=== PATIENT | female | born 1980 | race American Indian/Alaskan Native ===

== ENCOUNTER 2016-08-17 17:18 | Emergency (ER) | payer MEDICAID ==
[2016-08-17] MEDS ORDERED: TORADOL IM ONE (19:25)
--- NOTE | 2016-08-17 19:38 | Emergency Department Report ---
ED Fall HPI - General Chief Complaint: Fall Stated Complaint: FALL Time Seen by Provider: 08/17/16 19:11 Source: patient Mode of arrival: Ambulatory - History of Present Illness Initial Comments: 36-year-old female past medical history asthma, smoker presents with complaint of left-sided rib pain status post mechanical fall yesterday. Patient states she was shopping at [employer] when she slipped on a puddle of water in aisle. Patient states she landed on her left side. Denies any loss of consciousness states her head did not hit the ground. Denies sustaining any lacerations. Patient was assisted by bystanders. Patient is awake alert and oriented 3 not in acute distress complaining of soreness in her elbow and right knee some soreness in her upper left shoulder region primarily complaining of pain along her left mid axillary line/rib region. States pain is slightly worse when she takes deep breath. Patient is fully ambulatory without any assistance. States she took Motrin at home with minimal relief of pain. Denies any abdominal pain no shortness of breath no nausea or vomiting reported. Patient states she is on Depo-Provera for control MD Complaint: fall Onset/Timin -: days(s) Fall From: standing Fall Witnessed: yes, by bystander Place Fall Occurred: other (store) Loss of Consciousness: none Prolonged Down Time?: no Symptoms Prior to Fall: none Location: chest Severity: moderate Severity scale (0 -10): 6 Quality: sharp, aching Context: tripped/slipped - Related Data Previous Rx's Medication Instructions Recorded Last Taken Type ALBUTEROL Inhaler [ProAir HFA 1 puff IH Q4H PRN #1 inha 08/17/16 Unknown Rx Inhaler] Acetaminophen/Codeine [Tylenol 1 tab PO Q6H PRN #8 tab 08/17/16 Unknown Rx /Codeine # 3 tab] Naproxen [Naprosyn TAB] 500 mg PO BID PRN #25 tablet 08/17/16 Unknown Rx Allergies Allergy/AdvReac Type Severity Reaction Status Date / Time No Known Allergies Allergy Unverified 08/17/16 18:01 ED Review of Systems ROS: Stated complaint: FALL Other details as noted in HPI Constitutional: denies: chills, fever Eyes: denies: eye pain, eye discharge, vision change ENT: denies: ear pain, throat pain Respiratory: denies: cough, shortness of breath, wheezing Cardiovascular: denies: chest pain, palpitations Endocrine: no symptoms reported Gastrointestinal: denies: abdominal pain, nausea, diarrhea Genitourinary: denies: urgency, dysuria, discharge Musculoskeletal: denies: back pain, joint swelling, arthralgia Skin: denies: rash, lesions Neurological: denies: headache, weakness, paresthesias Psychiatric: denies: anxiety, depression Hematological/Lymphatic: denies: easy bleeding, easy bruising ED Past Medical Hx - Past Medical History Previous Medical History?: No - Surgical History Additional Surgical History: Endometriosis - Social History Smoking Status: Current Every Day Smoker Substance Use Type: None - Medications Home Medications: Home Medications Medication Instructions Recorded Confirmed Last Taken Type ALBUTEROL Inhaler [ProAir HFA 1 puff IH Q4H PRN #1 inha 08/17/16 Unknown Rx Inhaler] Acetaminophen/Codeine [Tylenol 1 tab PO Q6H PRN #8 tab 08/17/16 Unknown Rx /Codeine # 3 tab] Naproxen [Naprosyn TAB] 500 mg PO BID PRN #25 tablet 08/17/16 Unknown Rx ED Physical Exam - General Limitations: No Limitations General appearance: alert, in no apparent distress - Head Head exam: Present: atraumatic, normocephalic - Eye Eye exam: Present: normal appearance, PERRL, EOMI - ENT ENT exam: Present: mucous membranes moist - Neck Neck exam: Present: normal inspection - Respiratory Respiratory exam: Present: normal lung sounds bilaterally, chest wall tenderness (mild reproducible pain left midaxillary line along costal margin). Absent: respiratory distress - Cardiovascular Cardiovascular Exam: Present: regular rate, normal rhythm. Absent: systolic murmur, diastolic murmur, rubs, gallop - GI/Abdominal GI/Abdominal exam: Present: soft, normal bowel sounds - Extremities Exam Extremities exam: Present: normal inspection - Back Exam Back exam: Present: normal inspection - Neurological Exam Neurological exam: Present: alert, oriented X3 - Psychiatric Psychiatric exam: Present: normal affect, normal mood - Skin Skin exam: Present: warm, dry, intact, normal color. Absent: rash ED Course Vital Signs 08/17/16 18:02 Temperature 98.3 F Pulse Rate 108 H Respiratory 18 Rate Blood Pressure 159/77 O2 Sat by Pulse 100 Oximetry ED Medical Decision Making - Medical Decision Making A/P: Mechanical fall, left side rib pain/chest wall pain 1-case discussed with Dr. Thorpe 2-CT chest shows emphysematous changes but no rib fractures and no pneumothorax. Patient is a smoker 3-naproxen when necessary, Tylenol 3 when necessary short course 4-I informed patient she has mild emphysematous changes on on CT and suggested on x-ray. I advised her on smoking cessation. Albuterol inhaler when necessary Follow-up with primary care doctor Critical care attestation.: If time is entered above; I have spent that time in minutes in the direct care of this critically ill patient, excluding procedure time. ED Disposition Clinical Impression: Chest wall pain Fall Qualifiers: Encounter type: initial encounter Qualified Code(s): W19.XXXA - Unspecified fall, initial encounter Disposition: DISCHARGED TO HOME OR SELFCARE Is pt being admited?: No Does the pt Need Aspirin: No Condition: Stable Instructions: Chest Pain (ED), Thoracic Pain (ED) Prescriptions: Acetaminophen/Codeine [Tylenol /Codeine # 3 tab] 1 tab PO Q6H PRN #8 tab PRN Reason: Pain ALBUTEROL Inhaler [ProAir HFA Inhaler] 1 puff IH Q4H PRN #1 inha PRN Reason: Shortness Of Breath Naproxen [Naprosyn TAB] 500 mg PO BID PRN #25 tablet PRN Reason: Pain Referrals: LIZZY DOWNS MD [Staff Physician] - 3-5 Days Forms: Work/School Release Form(ED) Time of Disposition: 23:11
--- NOTE | 2016-08-17 20:51 | XRay Report ---
FINAL REPORT PROCEDURE: XR RIBS UNI W PA CHEST 3 LT TECHNIQUE: Frontal view chest two views left ribs HISTORY: left side rib pain COMPARISON: No prior studies are available for comparison. FINDINGS: No definite evidence of acute fracture, specifically left ribcage. Mild central congestion. Heart is not enlarged. No pneumothorax or effusion. Mild central peribronchial cuffing and bronchovascular sheath thickening left greater than right. If symptoms and or concern persists recommend CT chest.. IMPRESSION: Nonspecific peribronchial cuffing. No fracture seen.
[2016-08-17] MEDS ORDERED: NORCO 5/325 PO ONE (20:59)
--- NOTE | 2016-08-17 23:07 | Cat Scan Report ---
FINAL REPORT EXAM: CT CHEST WO CON HISTORY: ? left sided rib fractures, pt on brith control TECHNIQUE: Noncontrast serial axial images through the chest with coronal and sagittal reconstruction PRIORS: None. FINDINGS: Paraseptal emphysematous changes are seen in the lung apices, bilaterally. No focal consolidations are seen in the lungs. No pneumothorax or pleural effusion is seen. No abnormal mass or adenopathy is identified. The heart measures approximately 12.9 centimeters in length. No gross abnormality is seen in the visualized portion of the abdomen. No displaced rib fracture is identified. IMPRESSION: 1. No displaced rib fracture is identified. 2. No pneumothorax or pleural effusion is seen.
[2016-08-17 23:18] VITALS: BP 123/74
== END 2016-08-17 23:21 | disposition home or self-care (01) ==
LOC: ED 17:18
DX: R07.89 Other chest pain (principal); N80.9 Endometriosis, unspecified; F17.200 Nicotine dependence, unspecified, uncomplicated; W19.XXXA Unspecified fall, initial encounter; Y93.89 Activity, other specified; Y99.8 Other external cause status; Y92.512 Supermarket, store or market as the place of occurrence of the external cause
CPT/HCPCS: 71101; 71250; 96372; 99284; J1885

== ENCOUNTER 2017-04-10 21:24 | Emergency (ER) | payer MEDICAID ==
[2017-04-11 06:47] VITALS: BP 141/65
[2017-04-11] MEDS ORDERED: TYLENOL #3 PO ONE (07:40)
--- NOTE | 2017-04-11 07:45 | Emergency Department Report ---
ED ENT HPI - General Chief complaint: Dental/Oral Stated complaint: TOOTHACHE Time Seen by Provider: 04/11/17 07:30 Source: patient Mode of arrival: Ambulatory Limitations: No Limitations - History of Present Illness Initial comments: 36-year-old female presents with complaint of acute on chronic left lower toothache. Patient has multiple unfixed cavities. No drooling no trismus speaking in full sentences. Denies pus or blood drainage from mouth. Denies fevers or chills. Awake alert and oriented 3. States she has not yet seen a dentist for her cavities. MD complaint: tooth pain Onset/Timin -: days(s) Location: tooth # 1 - Dental abscess here Severity: moderate Severity scale (0 -10): 6 Quality: aching Consistency: constant Improves with: none Worsens with: none Context- Dental: history of dental caries, poor dental care - Related Data Previous Rx's Medication Instructions Recorded Last Taken Type ALBUTEROL Inhaler [ProAir HFA 1 puff IH Q4H PRN #1 inha 08/17/16 Unknown Rx Inhaler] Acetaminophen/Codeine [Tylenol 1 tab PO Q6H PRN #8 tab 08/17/16 Unknown Rx /Codeine # 3 tab] Naproxen [Naprosyn TAB] 500 mg PO BID PRN #25 tablet 08/17/16 Unknown Rx Acetaminophen/Codeine [Tylenol 1 tab PO Q6H PRN #8 tab 04/11/17 Unknown Rx /Codeine # 3 tab] Amoxicillin [Trimox CAP] 500 mg PO Q8H #30 capsule 04/11/17 Unknown Rx Chlorhexidine Mouthwash [Peridex] 15 ml MM BID #1 bottle 04/11/17 Unknown Rx Ibuprofen [Motrin] 800 mg PO Q8HR PRN #30 tablet 04/11/17 Unknown Rx Allergies Allergy/AdvReac Type Severity Reaction Status Date / Time No Known Allergies Allergy Verified 04/10/17 21:53 ED Dental HPI - General Chief complaint: Dental/Oral Stated complaint: TOOTHACHE Time Seen by Provider: 04/11/17 07:30 Source: patient Mode of arrival: Ambulatory Limitations: No Limitations - Related Data Previous Rx's Medication Instructions Recorded Last Taken Type ALBUTEROL Inhaler [ProAir HFA 1 puff IH Q4H PRN #1 inha 08/17/16 Unknown Rx Inhaler] Acetaminophen/Codeine [Tylenol 1 tab PO Q6H PRN #8 tab 08/17/16 Unknown Rx /Codeine # 3 tab] Naproxen [Naprosyn TAB] 500 mg PO BID PRN #25 tablet 08/17/16 Unknown Rx Acetaminophen/Codeine [Tylenol 1 tab PO Q6H PRN #8 tab 04/11/17 Unknown Rx /Codeine # 3 tab] Amoxicillin [Trimox CAP] 500 mg PO Q8H #30 capsule 04/11/17 Unknown Rx Chlorhexidine Mouthwash [Peridex] 15 ml MM BID #1 bottle 04/11/17 Unknown Rx Ibuprofen [Motrin] 800 mg PO Q8HR PRN #30 tablet 04/11/17 Unknown Rx Allergies Allergy/AdvReac Type Severity Reaction Status Date / Time No Known Allergies Allergy Verified 04/10/17 21:53 ED Review of Systems ROS: Stated complaint: TOOTHACHE Other details as noted in HPI Constitutional: denies: chills, fever Eyes: denies: eye pain, eye discharge, vision change ENT: dental pain. denies: ear pain, throat pain Respiratory: denies: cough, shortness of breath, wheezing Cardiovascular: denies: chest pain, palpitations Endocrine: no symptoms reported Gastrointestinal: denies: abdominal pain, nausea, diarrhea Genitourinary: denies: urgency, dysuria, discharge Musculoskeletal: denies: back pain, joint swelling, arthralgia Skin: denies: rash, lesions Neurological: denies: headache, weakness, paresthesias Psychiatric: denies: anxiety, depression Hematological/Lymphatic: denies: easy bleeding, easy bruising ED Past Medical Hx - Past Medical History Previous Medical History?: No - Surgical History Additional Surgical History: Endometriosis, C/S - Social History Smoking Status: Former Smoker Substance Use Type: Alcohol - Medications Home Medications: Home Medications Medication Instructions Recorded Confirmed Last Taken Type ALBUTEROL Inhaler [ProAir HFA 1 puff IH Q4H PRN #1 inha 08/17/16 Unknown Rx Inhaler] Acetaminophen/Codeine [Tylenol 1 tab PO Q6H PRN #8 tab 08/17/16 Unknown Rx /Codeine # 3 tab] Naproxen [Naprosyn TAB] 500 mg PO BID PRN #25 tablet 08/17/16 Unknown Rx Acetaminophen/Codeine [Tylenol 1 tab PO Q6H PRN #8 tab 04/11/17 Unknown Rx /Codeine # 3 tab] Amoxicillin [Trimox CAP] 500 mg PO Q8H #30 capsule 04/11/17 Unknown Rx Chlorhexidine Mouthwash [Peridex] 15 ml MM BID #1 bottle 04/11/17 Unknown Rx Ibuprofen [Motrin] 800 mg PO Q8HR PRN #30 tablet 04/11/17 Unknown Rx ED Physical Exam - General Limitations: No Limitations General appearance: alert, in no apparent distress - Head Head exam: Present: atraumatic, normocephalic - Eye Eye exam: Present: normal appearance, PERRL, EOMI - ENT ENT exam: Present: mucous membranes moist - Expanded ENT Exam Expanded Mouth exam: Present: normal external inspection Teeth exam: Present: dental caries, dental tenderness # 1 - Dental Tenderness (small dental abscess with dental caries here.) Throat exam: Positive: normal inspection - Neck Neck exam: Present: normal inspection, full ROM - Respiratory Respiratory exam: Present: normal lung sounds bilaterally. Absent: respiratory distress - Cardiovascular Cardiovascular Exam: Present: regular rate, normal rhythm. Absent: systolic murmur, diastolic murmur, rubs, gallop - GI/Abdominal GI/Abdominal exam: Present: soft, normal bowel sounds - Extremities Exam Extremities exam: Present: normal inspection - Back Exam Back exam: Present: normal inspection - Neurological Exam Neurological exam: Present: alert, oriented X3, CN II-XII intact, normal gait - Psychiatric Psychiatric exam: Present: normal affect, normal mood - Skin Skin exam: Present: warm, dry, intact, normal color. Absent: rash ED Course Vital Signs 04/10/17 04/10/17 04/11/17 21:43 21:53 04:23 Temperature 98.2 F 98.2 F 97.4 F L Pulse Rate 73 70 62 Respiratory 18 18 16 Rate Blood Pressure 120/47 120/47 123/82 Blood Pressure [Left] O2 Sat by Pulse 97 96 99 Oximetry 04/11/17 04/11/17 06:27 06:53 Temperature 97.8 F Pulse Rate 72 Respiratory 16 Rate Blood Pressure Blood Pressure 141/65 [Left] O2 Sat by Pulse 100 Oximetry ED Medical Decision Making - Medical Decision Making A/P: dental cavities, toothache, dental abscess 1- Motrin when necessary, amoxicillin ten-day course, Orajel when necessary, Peridex mouthwash daily basis, short course codeine when necessary 2- I provided patient with information for multiple dental clinics to follow up and stressed the importance of dental follow-up as he has multiple cavities that require dental fixation or instrumentation 3- no clinical signs of facial abscess, no Lopez's angina, no induration or cellulitis of floor of mouth or tongue 4- patient able to tolerate by mouth before discharge 5- no signs of facial infection. Advised patient that if she does not take antibiotics with follow-up with a dentist as soon as possible that a can result in potentially serious or dangerous infection to develop in jaw or face. Patient states that he understood these instructions. I advised patient to return to the ED for any persistent unrelenting nausea or vomiting fever or chills or headaches. Critical care attestation.: If time is entered above; I have spent that time in minutes in the direct care of this critically ill patient, excluding procedure time. ED Disposition Clinical Impression: Dental cavity, Dental abscess Disposition: - TO HOME OR SELFCARE Is pt being admited?: No Does the pt Need Aspirin: No Condition: Stable Instructions: Dental Caries (ED), Dental Abscess (ED) Prescriptions: Acetaminophen/Codeine [Tylenol /Codeine # 3 tab] 1 tab PO Q6H PRN #8 tab PRN Reason: Toothache Amoxicillin [Trimox CAP] 500 mg PO Q8H #30 capsule Chlorhexidine Mouthwash [Peridex] 15 ml MM BID #1 bottle Ibuprofen [Motrin] 800 mg PO Q8HR PRN #30 tablet PRN Reason: Pain Referrals: [facility] [Outside] - 3-5 Days [facility] [Outside] - 3-5 Days Forms: Work/School Release Form(ED), Accompanied Note Time of Disposition: 07:43
== END 2017-04-11 07:50 | disposition home or self-care (01) ==
LOC: ED 21:24
DX: K04.7 Periapical abscess without sinus (principal); Z87.891 Personal history of nicotine dependence
CPT/HCPCS: 99282

== ENCOUNTER 2017-07-10 12:47 | Emergency (ER) | payer MEDICAID ==
[2017-07-10 12:58] VITALS: BP 137/86
--- NOTE | 2017-07-10 15:09 | Emergency Department Report ---
ED Rash HPI - HPI Chief Complaint: Skin Rash Stated Complaint: RASH Time Seen by Provider: 07/10/17 14:16 Duration: 1 1.5 weeks Location: Other (forehead, cheeks, hairline) Suspected Cause: Unknown Rash Symptoms: Yes Itching Severity: moderate Other History: 37-year-old [place] female comes in for complaint of small bumps to the face with itching for 1-1/2 weeks. Patient denies any new beauty products denies using any new soaps no new foods. She reports she is been using Benadryl for the last 7 days and has not helped. He reports that her daily routine as washing her face only with water. She does not use any soap at all. Anything she can recalls having her hair done and braised approximately 26 days ago as per patient. She reports that the bumps are fine itching located on her forehead side of her cheeks and in the hairline. Patient reports no past medical history currently takes no medications and has no known drug allergies. ED Review of Systems ROS: Stated complaint: RASH Other details as noted in HPI Constitutional: denies: chills, fever Eyes: denies: eye pain, eye discharge, vision change ENT: denies: ear pain, throat pain Respiratory: denies: cough, shortness of breath, wheezing Cardiovascular: denies: chest pain, palpitations Endocrine: no symptoms reported Gastrointestinal: denies: abdominal pain, nausea, diarrhea Genitourinary: denies: urgency, dysuria, discharge Musculoskeletal: denies: back pain, joint swelling, arthralgia Skin: rash. denies: lesions Neurological: denies: headache, weakness, paresthesias Psychiatric: denies: anxiety, depression Hematological/Lymphatic: denies: easy bleeding, easy bruising ED Past Medical Hx - Past Medical History Previous Medical History?: No - Surgical History Additional Surgical History: Endometriosis, C/S - Social History Smoking Status: Former Smoker Substance Use Type: None - Medications Home Medications: Home Medications Medication Instructions Recorded Confirmed Last Taken Type ALBUTEROL Inhaler [ProAir HFA 1 puff IH Q4H PRN #1 inha 08/17/16 Unknown Rx Inhaler] Acetaminophen/Codeine [Tylenol 1 tab PO Q6H PRN #8 tab 08/17/16 Unknown Rx /Codeine # 3 tab] Naproxen [Naprosyn TAB] 500 mg PO BID PRN #25 tablet 08/17/16 Unknown Rx Acetaminophen/Codeine [Tylenol 1 tab PO Q6H PRN #8 tab 04/11/17 Unknown Rx /Codeine # 3 tab] Amoxicillin [Trimox CAP] 500 mg PO Q8H #30 capsule 04/11/17 Unknown Rx Chlorhexidine Mouthwash [Peridex] 15 ml MM BID #1 bottle 04/11/17 Unknown Rx Ibuprofen [Motrin] 800 mg PO Q8HR PRN #30 tablet 04/11/17 Unknown Rx Hydrocortisone 1% [Hydrocortisone 1 applicatio TP TID #1 tube 07/10/17 Unknown Rx 1% CREAM] Rash Exam - Exam General: Vital signs noted. No distress. Alert and acting appropriately. HEENT: No Periorbital Edema, No Conjuctival Injection, No Chemosis, No Perioral Edema, No Tongue Edema, No Uvular Edema, No Compromised Airway, No Drooling Lungs: Yes Good Air Exchange (Normal Breath Sounds), No Wheezes, No Ronchi, No Stridor, No Cough, No Labored Respirations, No Retractions, No Use of Accessory Muscles, No Other Abnormal Lung Sounds Heart: Yes Regular, No Murmur Skin: Yes Maculopapular Rash (face, cheeks, hairline), Yes Other, No Urticarial Rash, No Morbilliform rash, No Bulla(e), No Excoriations, No Weeping, No Tenderness, No Erythema, No Edema, No Encrustations ED Course Vital Signs 07/10/17 12:55 Temperature 98.6 F Pulse Rate 94 H Respiratory 16 Rate Blood Pressure 137/86 O2 Sat by Pulse 97 Oximetry ED Medical Decision Making - Medical Decision Making Patient's been evaluated by this provider fast track. I discussed the patient will refer her to dermatology for further evaluation. Critical care attestation.: If time is entered above; I have spent that time in minutes in the direct care of this critically ill patient, excluding procedure time. ED Disposition Clinical Impression: Rash in adult Disposition: DC-01 TO HOME OR SELFCARE Is pt being admited?: No Does the pt Need Aspirin: No Condition: Stable Instructions: Acute Rash (ED) Additional Instructions: Please follow up with dermatology. Prescriptions: Hydrocortisone 1% [Hydrocortisone 1% CREAM] 1 applicatio TP TID #1 tube Referrals: PRIMARY CAREMD [Primary Care Provider] - 3-5 Days JAIRO GOFF MD [Staff Physician] - 3-5 Days LIS FLYNN MD [Staff Physician] - 3-5 Days JUAN GREGORY MD [Staff Physician] - 3-5 Days LIGIA CAST MD [Referring] - 3-5 Days Forms: Accompanied Note, Work/School Release Form(ED)
== END 2017-07-10 18:38 | disposition home or self-care (01) ==
LOC: ED 12:47
DX: R21 Rash and other nonspecific skin eruption (principal); Z87.891 Personal history of nicotine dependence
CPT/HCPCS: 99282

== ENCOUNTER 2017-08-16 19:45 | Emergency (ER) | payer MEDICAID | END 2017-08-16 19:46 | disposition left against medical advice (07) | LOC: ED 19:45 | DX: Z53.21 Procedure and treatment not carried out due to patient leaving prior to being seen by health care provider (principal) ==